=== PATIENT | female | born 1965 | race Asian ===

== ENCOUNTER 2016-08-06 08:56 | Outpatient (CLI) | payer BC | END 2016-08-06 19:36 | disposition home or self-care (01) | LOC: SUS 08:56 | PROVIDERS: ATTEND Internal Medicine | DX: R16.0 Hepatomegaly, not elsewhere classified (principal); R05 Cough; M47.894 Other spondylosis, thoracic region | CPT/HCPCS: 71020-TC; 76700-TC ==

== ENCOUNTER 2017-10-11 11:39 | Outpatient (CLI) | payer BC | END 2017-10-11 18:59 | disposition home or self-care (01) | LOC: SUS 11:39 | PROVIDERS: ATTEND Internal Medicine | DX: N95.9 Unspecified menopausal and perimenopausal disorder (principal); R10.2 Pelvic and perineal pain | CPT/HCPCS: 76830-TC; 76857 ==

== ENCOUNTER 2019-02-22 10:50 | Outpatient (CLI) | payer BC | END 2019-02-22 20:13 | disposition home or self-care (01) | LOC: SUS 10:50 | PROVIDERS: ATTEND Internal Medicine | DX: K76.9 Liver disease, unspecified (principal) | CPT/HCPCS: 76700-TC ==

== ENCOUNTER 2021-04-04 11:01 | Outpatient (CLI) | payer BC ==
[2021-04-04 11:39] LABS: BASOPHILS % (AUTO) 0.5 % (0.0-2.0); EOSINOPHILS # (AUTO) 0.3 K/uL (0.0-0.4); EOSINOPHILS % (AUTO) 3.4 % (0.0-4.0); HEMATOCRIT 42.1 % (36-48); HEMOGLOBIN 14.1 g/dL (12.0-16.0); LYMPHOCYTES # (AUTO) 2.4 K/uL (1.0-5.5); LYMPHOCYTES % (AUTO) 29.6 % (20.5-51.5); MEAN CORPUSCULAR HEMOGLOBIN 29 pg (27-31); MEAN CORPUSCULAR HGB CONC 33 % (32-36); MEAN CORPUSCULAR VOLUME 85 fL (79.0-98.0); MONOCYTES # (AUTO) 0.5 K/uL (0.0-1.0); NEUTROPHILS # (AUTO) 4.9 K/uL (1.8-7.7); NEUTROPHILS % (AUTO) 60.5 % (40.0-70.0); PLATELET COUNT (AUTO) 322 K/uL (130-430); RED BLOOD CELL COUNT(AUTO) 4.94 MIL/uL (4.2-6.2); WHITE BLOOD COUNT (AUTO) 8.2 K/uL (4.8-10.8)
[2021-04-04 11:49] LABS: BILIRUBIN,URINE NEGATIVE (NEGATIVE); CLARITY/URINE CLEAR (CLEAR); COLOR,URINE YELLOW (YELLOW); GLUCOSE,URINE NEGATIVE (NEGATIVE); KETONES,URINE NEGATIVE (NEGATIVE); LEUKOCYTE ESTERASE ,URINE NEGATIVE (NEGATIVE); NITRITE, URINE NEGATIVE (NEGATIVE); PROTEIN URINE NEGATIVE (NEGATIVE); UROBILINOGEN,URINE 0.2 (0.2-1.0)
[2021-04-04 11:56] LABS: CALCIUM 8.5 mg/dL (8.4-11.0); CREATININE 0.61 mg/dL (0.55-1.30); POTASSIUM 3.8 mmol/L (3.5-5.1); TOTAL BILIRUBIN 0.6 mg/dL (0.0-1.0)
[2021-04-04 14:18] LABS: BLOOD, URINE TRACE (NEGATIVE)
[2021-04-04 14:41] LABS: BACTERIA,URINE None Seen /HPF (None Seen); WBC,URINE NONE SEEN /HPF (0-3)
== END 2021-04-04 19:00 | disposition home or self-care (01) ==
LOC: SLB 11:01
PROVIDERS: ATTEND Internal Medicine
DX: Z01.818 Encounter for other preprocedural examination (principal); E55.9 Vitamin D deficiency, unspecified
CPT/HCPCS: 36415; 71046-TC; 80053; 80061; 81000; 82306; 85025; 93005

== ENCOUNTER 2021-07-02 17:17 | Outpatient (CLI) | payer BC | END 2021-07-02 20:12 | disposition home or self-care (01) | LOC: SRD 17:17 | DX: C50.919 Malignant neoplasm of unspecified site of unspecified female breast (principal) | CPT/HCPCS: 71046-TC ==

== ENCOUNTER 2022-02-18 12:39 | Outpatient (CLI) | payer BC | END 2022-02-18 17:35 | disposition home or self-care (01) | LOC: SCA 12:39 | DX: Z01.810 Encounter for preprocedural cardiovascular examination (principal) | CPT/HCPCS: 93005 ==

== ENCOUNTER 2022-05-18 11:32 | Outpatient (CLI) | payer BC | END 2022-05-18 19:21 | disposition home or self-care (01) | LOC: SRD 11:32 | PROVIDERS: ATTEND Internal Medicine | DX: M47.814 Spondylosis without myelopathy or radiculopathy, thoracic region (principal); M54.6 Pain in thoracic spine; M48.52XA Collapsed vertebra, not elsewhere classified, cervical region, initial encounter for fracture | CPT/HCPCS: 72040-TC; 72072-TC ==

== ENCOUNTER 2022-09-03 16:11 | Outpatient (CLI) | payer BC | END 2022-09-03 18:20 | disposition home or self-care (01) | LOC: SCA 16:11 | PROVIDERS: ATTEND Internal Medicine | DX: I10 Essential (primary) hypertension (principal); R03.0 Elevated blood-pressure reading, without diagnosis of hypertension | CPT/HCPCS: 93005 ==